=== PATIENT | female | born 1960 | race Caucasian/White ===

== ENCOUNTER 2017-12-13 12:23 | Outpatient (CLI) | payer OTHER ==
--- NOTE | 2017-12-13 14:54 | CT Report ---
Procedure Date: 12/13/2017 Accession Number: [id number] / [id number] Procedure: CT - Sinuses CPT Code: FULL RESULT: EXAM: CT SINUS EXAM DATE: 12/13/2017 01:03 PM. HISTORY: Chronic sinusitis. COMPARISONS: None. TECHNIQUE: Routine multi-axial CT imaging performed through the sinuses. Iodinated IV contrast: None. Reconstructions: Sagittal and coronal. In accordance with CT protocol optimization, one or more of the following dose reduction techniques were utilized for this exam: automated exposure control, adjustment of mA and/or KV based on patient size, or use of iterative reconstructive technique. FINDINGS: RIGHT Frontal: Normal. Ethmoid: Normal. Maxillary: Normal. Sphenoid: Normal. Drainage Pathways: The frontal recess, ostiomeatal complex and sphenoethmoidal recess are patent and normal. LEFT Frontal: Normal. Ethmoid: Normal. Maxillary: Minimal foci of mucosal thickening with possible polyp along the medial wall measuring about 16 x 8 mm versus localized mucous. Sphenoid: Normal. Drainage Pathways: The frontal recess, ostiomeatal complex and sphenoethmoidal recess are patent and normal. Nasal Cavity: Normal. No mass or significant anatomic abnormality. Bones: Prominent defect in anterior nasal septum, developmental versus previous erosion or surgery. Mild underlying septal deviation measuring about 5 mm to the left. Orbits: Unremarkable. Other: None. IMPRESSION: 1. Minimal mucosal thickening in left maxillary sinus. 2. Large defect of anterior nasal septum. RADIA
== END 2017-12-13 12:24 | disposition home or self-care (01) ==
LOC: DI 12:23
PROVIDERS: ATTEND Physician Assistant Medical
DX: J32.9 Chronic sinusitis, unspecified (principal)
CPT/HCPCS: 70486

== ENCOUNTER 2018-06-13 09:20 | Outpatient (CLI) | payer OTHER ==
[2018-06-13 18:02] LABS: BASOPHILS # (AUTO) 0.1 10^3/uL (0.0-0.1); BASOPHILS % (AUTO) 0.6 %; EOSINOPHILS # (AUTO) 0.1 10^3/uL (0.0-0.7); EOSINOPHILS % (AUTO) 1.5 %; LYMPHOCYTES # (AUTO) 1.9 10^3/uL (1.5-3.5); LYMPHOCYTES % (AUTO) 20.7 %; MEAN CORPUSCULAR HEMOGLOBIN 32.6 pg (27.0-31.0); MEAN CORPUSCULAR HGB CONC 33.5 g/dL (32.0-36.0); MEAN CORPUSCULAR VOLUME 97.4 fL (81.0-99.0); MEAN PLATELET VOLUME 8.7 fL (7.9-10.8); MONOCYTES # (AUTO) 0.4 10^3/uL (0.0-1.0); MONOCYTES % (AUTO) 4.3 %; NEUTROPHILS # (AUTO) 6.6 10^3/uL (1.5-6.6); NEUTROPHILS % (AUTO) 72.9 %; PLT - PLATELET COUNT 296 10^3/uL (130-450); RED CELL DISTRIBUTION WIDTH 12.8 % (12.0-15.0); WHITE BLOOD COUNT 9.1 x10^3/uL (4.8-10.8)
[2018-06-13 18:20] LABS: ALBUMIN 4.7 g/dL (3.2-5.5); ALBUMIN/GLOBULIN RATIO 1.7 (1.0-2.2); ALKALINE PHOSPHATASE 69 IU/L (42-121); ALT ALANINE AMINOTRANSFERASE 18 IU/L (10-60); AST ASPARTATE AMINOTRANSFERASE 19 IU/L (10-42); BUN - BLOOD UREA NITROGEN 12 mg/dL (6-20); CALCIUM 9.2 mg/dL (8.5-10.3); CARBON DIOXIDE - CO2 27 mmol/L (21-32); CHLORIDE 103 mmol/L (101-111); CHOL/HDL RATIO 4.7 (<4.4); CHOLESTEROL 243 mg/dL; CREATININE 0.9 mg/dL (0.4-1.0); GFR - MDRD 65 (>89); GLUCOSE 102 mg/dL (70-100); HDL CHOLESTEROL 52 mg/dL; LDL CHOLESTEROL,CALCULATED 166 mg/dL; LDL/HDL RATIO 3.2 (<4.4); SODIUM 140 mmol/L (135-145); TOTAL PROTEIN 7.5 g/dL (6.7-8.2); VLDL CHOLESTEROL 25 mg/dL
[2018-06-13 19:35] LABS: HB2 TOTAL 16.2 g/dL; HEMOGLOBIN A1C 0.62 g/dL; HEMOGLOBIN A1C % 5.7 % (4.6-6.2)
== END 2018-06-13 09:21 | disposition home or self-care (01) ==
LOC: LAB.F 09:20
PROVIDERS: ATTEND Registered Nurse
DX: Z00.00 Encounter for general adult medical examination without abnormal findings (principal)
CPT/HCPCS: 36415; 80053; 80061; 83036; 83721; 84443; 85025

== ENCOUNTER 2019-02-20 12:29 | Outpatient (CLI) | payer OTHER ==
--- NOTE | 2019-02-20 16:01 | XRAY Report ---
Reason: RIB PAIN Procedure Date: 02/20/2019 Accession Number: [id number] / [id number] Procedure: XR - Chest 2 View X-Ray CPT Code: 81625 FULL RESULT: EXAM: CHEST RADIOGRAPHY EXAM DATE: 02/20/2019 01:39 PM. CLINICAL HISTORY: RIB PAIN. COMPARISON: None. TECHNIQUE: 2 views. FINDINGS: Lungs/Pleura: No focal opacities evident. No pleural effusion. No pneumothorax. Normal volumes. Mediastinum: Heart and mediastinal contours are unremarkable. Other: 5 mm linear attenuation adjacent to the left lateral 10th rib, question foreign body versus screen artifact. IMPRESSION: Clear lungs. No acute findings. RADIA
--- NOTE | 2019-02-20 16:04 | XRAY Report ---
Reason: BACK PAIN Procedure Date: 02/20/2019 Accession Number: [id number] / [id number] Procedure: XR - Thoracic Spine 2 View CPT Code: FULL RESULT: EXAM: THORACIC SPINE RADIOGRAPHY EXAM DATE: 02/20/2019 01:39 PM. CLINICAL HISTORY: BACK PAIN. COMPARISON: CHEST 2 VIEW 02/20/2019 1:32 PM. TECHNIQUE: 3 views. FINDINGS: Alignment: No spondylolisthesis minimal lower thoracic levoscoliosis.. Bones: No fractures or bone lesions. Disks: Disk heights are maintained. Soft Tissues: The included lungs and cardiomediastinal silhouette are normal. IMPRESSION: Mild lower thoracic levoscoliosis. Otherwise negative three-view thoracic spine. RADIA
--- NOTE | 2019-02-20 16:07 | XRAY Report ---
Reason: BACK PAIN Procedure Date: 02/20/2019 Accession Number: [id number] / [id number] Procedure: XR - Lumbar Spine Complete CPT Code: FULL RESULT: EXAM: LUMBOSACRAL SPINE RADIOGRAPHY EXAM DATE: 02/20/2019 01:39 PM. CLINICAL HISTORY: BACK PAIN. COMPARISONS: THORACIC SPINE 2 VIEW 02/20/2019 1:37 PM. TECHNIQUE: 5 views. FINDINGS: Alignment: Lumbar dextroscoliosis apex L3. No significant anterior or retrolisthesis. Bones: Five [id number] lumbar vertebral bodies are present. No fractures or bone lesions. Degenerative endplate spurring L3 greater than L2. Disks: Degenerative disk space narrowing L4-L5. Facets: Minor lower lumbar degenerative changes. Sacroiliac Joints: Unremarkable. Soft Tissues: Unremarkable IMPRESSION: Degenerative change lumbar spine most marked L4-L5. Mild lumbar dextroscoliosis. RADIA
[2019-02-20 17:49] LABS: ALBUMIN 4.2 g/dL (3.2-5.5); ALBUMIN/GLOBULIN RATIO 1.4 (1.0-2.2); ALKALINE PHOSPHATASE 67 IU/L (42-121); ALT ALANINE AMINOTRANSFERASE 15 IU/L (10-60); AST ASPARTATE AMINOTRANSFERASE 17 IU/L (10-42); BILIRUBIN,TOTAL 0.5 mg/dL (0.2-1.0); BUN - BLOOD UREA NITROGEN 12 mg/dL (6-20); CALCIUM 9.5 mg/dL (8.5-10.3); CARBON DIOXIDE - CO2 29 mmol/L (21-32); CHLORIDE 104 mmol/L (101-111); CHOL/HDL RATIO 5.5 (<4.4); CHOLESTEROL 238 mg/dL; CREATININE 0.8 mg/dL (0.4-1.0); GFR - MDRD 74 (>89); GLUCOSE 125 mg/dL (70-100); HDL CHOLESTEROL 43 mg/dL; LDL CHOLESTEROL,CALCULATED 155 mg/dL; LDL/HDL RATIO 3.6 (<4.4); SODIUM 142 mmol/L (135-145); TOTAL PROTEIN 7.1 g/dL (6.7-8.2); VLDL CHOLESTEROL 40 mg/dL
[2019-02-20 17:57] LABS: CRP - C-REACTIVE PROTEIN < 1.0 mg/dL (0-1.0)
[2019-02-20 18:08] LABS: BASOPHILS # (AUTO) 0.1 10^3/uL (0.0-0.1); BASOPHILS % (AUTO) 0.7 %; EOSINOPHILS # (AUTO) 0.1 10^3/uL (0.0-0.7); EOSINOPHILS % (AUTO) 1.6 %; LYMPHOCYTES # (AUTO) 2.3 10^3/uL (1.5-3.5); LYMPHOCYTES % (AUTO) 32.3 %; MEAN CORPUSCULAR HEMOGLOBIN 31.5 pg (27.0-31.0); MEAN CORPUSCULAR VOLUME 95.3 fL (81.0-99.0); MEAN PLATELET VOLUME 10.8 fL (7.9-10.8); MONOCYTES # (AUTO) 0.3 10^3/uL (0.0-1.0); MONOCYTES % (AUTO) 4.7 %; NEUTROPHILS # (AUTO) 4.2 10^3/uL (1.5-6.6); NEUTROPHILS % (AUTO) 60.3 %; PLT - PLATELET COUNT 292 10^3/uL (130-450); RED BLOOD COUNT 4.45 10^6/uL (4.20-5.40); RED CELL DISTRIBUTION WIDTH 12.2 % (12.0-15.0)
== END 2019-02-20 12:30 | disposition home or self-care (01) ==
LOC: DI 12:29 → DI.S 12:30
PROVIDERS: ATTEND Family Medicine
DX: R07.81 Pleurodynia (principal); M51.36 Other intervertebral disc degeneration, lumbar region; M47.816 Spondylosis without myelopathy or radiculopathy, lumbar region; R53.83 Other fatigue; M79.7 Fibromyalgia; M41.9 Scoliosis, unspecified
CPT/HCPCS: 36415; 71046; 72070; 72110; 80053; 80061; 83721; 84443; 85025; 85651; 86140

== ENCOUNTER 2021-06-09 14:45 | Outpatient (CLI) | payer OTHER ==
[2021-06-09] MEDS ORDERED: IOVERSOL 320 100 ML VIAL IVP ONE ×2 (14:56→15:29)
--- NOTE | 2021-06-09 15:54 | CT Report ---
PROCEDURE: Low Dose Lung Cancer Screen INDICATIONS: TOBACCO USE, HEMATURIA TECHNIQUE: Noncontrast low-dose images were acquired from the pulmonary apices to the posterior costophrenic ang les. Multiplanar MIP reformats were then acquired. For radiation dose reduction, the following was used: automated exposure control, adjustment of mA and/or kV according to patient size. COMPARISON: None. FINDINGS: Image quality: Excellent. Lungs and pleura: No suspicious pulmonary nodule or mass. No acute airspace opacity otherwise. Pleur al spaces are clear. Mediastinum: Heart size is normal. No pericardial effusion. No mediastinal adenopathy by size crit eria. Thoracic aorta and central pulmonary arteries are normal in size. Esophagus is normal in guille alek. No hiatal hernia. Bones and chest wall: No suspicious bony lesions. No vertebral body compression fractures. No axil ekaterina or supraclavicular adenopathy by size criteria. Abdomen: Visualized upper abdomen solid organs and bowel loops appear normal in the absence of contr ast. IMPRESSION: No suspicious pulmonary nodule or mass. Lung-RADS Category 1. Recommendation: Continued annual screening CT of the chest. Reviewed by: Carlton Simeon MD on 06/09/2021 3:52 PM PST Approved by: Carlton Simeon MD on 06/09/2021 3:52 PM PST Station ID: [id number]
--- NOTE | 2021-06-10 09:15 | CT Report ---
PROCEDURE: IVP INDICATIONS: Hematuria CONTRAST: 320 mL Optiray. TECHNIQUE: After the administration of oral and intravenous contrast, 5 mm thick sections acquired from the diap hragms to the symphysis. 5 mm thick coronal and sagittal reformats were acquired. For radiation dos e reduction, the following was used: automated exposure control, adjustment of mA and/or kV accordin g to patient size. COMPARISON: None. FINDINGS: Image quality: Excellent. Lung bases: Lung bases are clear. Heart size is normal. Urinary system: Both kidneys normal in size. No renal calculus. Postcontrast images demonstrate numer ous subcentimeter hypoenhancing lesions on both renal cortices. Many of the lesion are of significant ly low attenuation to definitively classify as cysts. Others remain indeterminate on the basis of sma ll size and inability to accurately measure internal attenuation. Normal ureteral course and caliber with normal contrast opacification of the ureters. Urinary bladder unremarkable. Solid organs: Normal appearance of the liver, spleen, gallbladder, pancreas, and adrenal glands. Peritoneum and bowel: No abnormally dilated or thickened loops of bowel. No pericolonic or mesenteric inflammatory changes. No free fluid or free air. Nodes and vessels: No retroperitoneal or mesenteric adenopathy by size criteria. Aorta and inferior vena cava are normal in size. Abdominal wall: No ventral hernias. Pelvis: No pathologic free pelvic fluid. No inguinal hernias or adenopathy. Bones: No suspicious bony lesions. No vertebral body compression fractures. IMPRESSION: Multiple subcentimeter hypoenhancing bilateral renal lesions. A few of these lesions can be definitiv arnold characterized as cysts on the basis of attenuation, where as others are too small to accurately c haracterize. Follow-up renal ultrasound would help exclude solid neoplasm. Reviewed by: Carlton Simeon MD on 06/10/2021 9:14 AM PST Approved by: Carlton Simeon MD on 06/10/2021 9:14 AM PST Station ID: [id number]
== END 2021-06-09 14:46 | disposition home or self-care (01) ==
LOC: DI 14:45
PROVIDERS: ATTEND Nurse Practitioner Family
DX: R10.9 Unspecified abdominal pain (principal); R31.9 Hematuria, unspecified; N28.1 Cyst of kidney, acquired; N28.9 Disorder of kidney and ureter, unspecified; Z12.2 Encounter for screening for malignant neoplasm of respiratory organs; F17.210 Nicotine dependence, cigarettes, uncomplicated
CPT/HCPCS: 71271; 74178; Q9967

== ENCOUNTER 2021-06-17 14:58 | Outpatient (CLI) | payer OTHER ==
--- NOTE | 2021-06-17 20:26 | Ultrasound Report ---
PROCEDURE: Retroperitoneal INDICATIONS: RENAL CYST TECHNIQUE: Real-time scanning was performed of the kidneys and bladder, with image documentation. COMPARISON: CT IVP dated 06/09/2021 FINDINGS: Kidneys: Kidneys are normal in size. Right kidney measures 10.2cm long; left kidney measures 11.4 cm long. Right renal cortical thickness is 1.3 cm; left renal cortical thickness is 1.4 cm. Renal c ortical echotexture is normal. No hydronephrosis or nephrolithiasis. No suspicious solid mass lesio ns. There are 2 small right renal cysts and a single small left renal cyst. No suspicious solid idania s. Bladder: Pre-void bladder volume is 785.3 mL. Post-void residual is 5.7 mL. Pre-void images demons trate no intraluminal masses or stones. On pre-void images, bilateral ureteral jets are noted with c olor Doppler interrogation. (Of note, ureteral jets may not be detectable in up to 25% of cases due to insufficient differences in specific gravity between ureteral and bladder urine). Miscellaneous: No free pelvic fluid. IMPRESSION: Unremarkable ultrasound of the kidneys and bladder. Small bilateral renal cysts. No solid masses. No hydronephrosis. Reviewed by: Facundo Moeller MD on 06/17/2021 8:24 PM PST Approved by: Facundo Moeller MD on 06/17/2021 8:24 PM PST Station ID: [id number]
== END 2021-06-17 14:59 | disposition home or self-care (01) ==
LOC: DI 14:58
PROVIDERS: ATTEND Nurse Practitioner Family
DX: N28.1 Cyst of kidney, acquired (principal)

== ENCOUNTER 2021-06-23 10:00 | Outpatient (CLI) | payer OTHER ==
--- NOTE | 2021-06-30 07:41 | Mammography Report ---
BILATERAL DIGITAL SCREENING MAMMOGRAM 3D/2D: 06/23/2021 CLINICAL: Routine screening. Comparison is made to exams dated: 09/03/2013 mammogram - outside facility and 11/30/2016 mammogram - [facility]. The tissue of both breasts is heterogeneously dense. This may lower the sensi tivity of mammography. No significant masses, calcifications, or other findings are seen in either breast. There has been no significant interval change. IMPRESSION: NEGATIVE There is no mammographic evidence of malignancy. A 1 year screening mammogram is recommended. This exam was interpreted at Station ID: [id number]. NOTE: For mammograms, a report in lay terms will be sent to the patient. Approximately 15% of breast malignancies will not be visualized mammographically. In the management of a palpable breast mass, a negative mammogram must not discourage biopsy of a clinically suspicious lesion. Electronically Signed By: Stew Miranda M.D. ar/saúlrad:06/26/2021 15:42:18 ACR BI-RADS Category 1: Negative 3341F PARENCHYMAL PATTERN: (D) - The breast(s) demonstrate(s) heterogeneously dense fibroglandular deondre araujo. BI-RADS CATEGORY: (1) - 1 RECOMMENDATION: (ANNUAL) - Recommend routine annual screening mammography. [id number] 1 year screening LATERALITY: (B)
== END 2021-06-23 10:01 | disposition home or self-care (01) ==
LOC: DI.S 10:00
PROVIDERS: ATTEND Nurse Practitioner Family
DX: Z12.31 Encounter for screening mammogram for malignant neoplasm of breast (principal)

== ENCOUNTER 2021-08-11 13:11 | Outpatient (CLI) | payer OTHER ==
--- NOTE | 2021-08-11 14:12 | XRAY Report ---
PROCEDURE: Chest 2 View X-Ray INDICATIONS: Shortness of breath TECHNIQUE: 2 view(s) of the chest. COMPARISON: February 20, 2019 FINDINGS: SUPPORT DEVICES: None. LUNGS/PLEURA: No focal consolidation, pleural effusion or space-occupying pneumothorax. MEDIASTINUM: The cardiomediastinal silhouette is within normal limits. BONES/SOFT TISSUES: No acute abnormality. IMPRESSION: 1.No acute cardiopulmonary abnormality. Reviewed by: Nazario Campoverde MD on 08/11/2021 2:11 PM PDT Approved by: Nazario Campoverde MD on 08/11/2021 2:11 PM PDT Station ID: [id number]
== END 2021-08-11 13:12 | disposition home or self-care (01) ==
LOC: DI 13:11
PROVIDERS: ATTEND Nurse Practitioner Family
DX: F17.200 Nicotine dependence, unspecified, uncomplicated (principal)

== ENCOUNTER 2023-11-08 10:02 | Outpatient (CLI) | payer OTHER ==
--- NOTE | 2023-11-09 11:00 | Mammography Report ---
BILATERAL DIGITAL SCREENING MAMMOGRAM 3D/2D: 11/08/2023 CLINICAL: Routine screening. Comparison is made to exams dated: 06/23/2021 mammogram - [facility] and 11/30/2016 ma mmogram - [facility]. Both breasts are heterogeneously dense, which may obscure small masses (category c / 51-75% glandular tissue). There is a focal asymmetry in the right breast at 8 o'clock posterior depth. This is more prominent. No other significant masses, calcifications, or other findings are seen in either breast. IMPRESSION: INCOMPLETE: NEEDS ADDITIONAL IMAGING EVALUATION The focal asymmetry in the right breast is indeterminate. Additional views with possible ultrasound are recommended. Based on the Tyrer Cuzick model (a risk assessment model) the patient's lifetime risk is 10.3% and he r 10 year risk is 4.5%. According to the ACR, ACS, and NCCN guidelines, an annual breast MRI exam garrick ng with mammogram is recommended if the patient's lifetime risk is 20% or greater. This exam was interpreted at Station ID: [id number]. NOTE: For mammograms, a report in lay terms will be sent to the patient. Approximately 15% of breast malignancies will not be visualized mammographically. In the management of a palpable breast mass, a negative mammogram must not discourage biopsy of a clinically suspicious lesion. Electronically Signed By: Antwon woodall/jonah:11/08/2023 10:41:04 ACR BI-RADS Category 0: Incomplete 3340F PARENCHYMAL PATTERN: (D) - The breast(s) demonstrate(s) heterogeneously dense fibroglandular paryulianay van. BI-RADS CATEGORY: (0) - 0 Mammo and [place] [id number] Immediate follow-up LATERALITY: (B)
== END 2023-11-08 10:03 | disposition home or self-care (01) ==
LOC: DI.S 10:02
PROVIDERS: ATTEND Nurse Practitioner Family
DX: Z12.31 Encounter for screening mammogram for malignant neoplasm of breast (principal); R92.8 Other abnormal and inconclusive findings on diagnostic imaging of breast; R92.333 Mammographic heterogeneous density, bilateral breasts